=== PATIENT | male | born 1980 | race Caucasian/White ===

== ENCOUNTER → 2019-02-23 08:17 | Outpatient (CLI) | payer BC, SELFPAY ==
[2019-02-23 10:02] LABS: Alanine Aminotransferase 237 IU/L (<50); Albumin 5.3 g/dL (3.5-5.0); Albumin Globulin Ratio 1.5 (1.0-2.8); Alkaline Phosphatase 144 U/L (38-126); Aspartate Aminotransferase 470 IU/L (17-59); BUN Creatinine Ratio 14.5 (6-22); Bilirubin Total 3.3 mg/dL (0.2-1.3); Blood Urea Nitrogen 16 mg/dL (9-20); Carbon Dioxide 21 mmol/L (22-32); Chloride 95 mmol/L (98-107); Estimated Glomerular Filt Rate > 60.0 mL/min (>60); Globulin 3.5 g/dL (1.7-4.1); Glucose 102 mg/dL (70-100); HDL Cholesterol 105 mg/dL (40-60); HEMOLYSIS < 15 (0-50); Potassium 4.2 mmol/L (3.4-5.1); Sodium 132 mmol/L (137-145); Total Protein 8.8 g/dL (6.3-8.2)
[2019-02-23 10:13] LABS: Cholesterol 452 mg/dL (140-199); Triglycerides 1449 mg/dL (35-150)
== END ==
PROVIDERS: PCP Internal Medicine; Visit Provider Internal Medicine
DX: I10 Essential (primary) hypertension (principal)
CPT/HCPCS: 36415; 80053; 80061

== ENCOUNTER → 2019-03-12 16:17 | Outpatient (CLI) | payer BC, SELFPAY ==
--- NOTE | 2019-03-12 | DI.US.S_ITS ---
PROCEDURE: US ABDOMEN COMPLETE INDICATIONS: ABN RESULTS OFLIVER STUDIES/LAB TECHNIQUE: Real-time scanning was performed of the abdominal and retroperitoneal organs, with image documentation. COMPARISON: None. FINDINGS: Liver: Liver is normal in size and homogeneous in echotexture. Gallbladder: The gallbladder appears normal Biliary ducts: Intrahepatic bile ducts are non-dilated. Extrahepatic bile duct caliber measures 4.0 mm. Normal is 6-7 mm or less in diameter, or 10 mm or less post-cholecystectomy. Pancreas: Visualized portions of the pancreas are sonographically normal. Spleen: Spleen is normal in size and homogeneous in echotexture. Kidneys: Kidneys are normal in size and echotexture. Right kidney measures 10.6 cm long; left kidney measures 12.5 cm long. No hydronephrosis or nephrolithiasis. No solid masses. Aorta: Visualized aorta is normal in caliber at less than 3 cm. Iliacs: Proximal common iliac arteries are normal in caliber at less than 2.5 cm. IVC: Intrahepatic inferior vena cava is patent. Miscellaneous: No free abdominal fluid. IMPRESSION: Normal abdominal ultrasound, source of abnormal liver function tests is not seen. Dictated by: Oseas Aden M.D. on 03/13/2019 at 9:31 Approved by: Oseas Aden M.D. on 03/13/2019 at 9:33
[2019-03-12 18:08] LABS: Alanine Aminotransferase 42 IU/L (<50); Albumin 5.1 g/dL (3.5-5.0); Albumin Globulin Ratio 1.6 (1.0-2.8); Alkaline Phosphatase 90 U/L (38-126); Aspartate Aminotransferase 36 IU/L (17-59); Bilirubin Total 0.5 mg/dL (0.2-1.3); Bilirubin Unconjugated 0.4 mg/dL (0.0-1.1); Globulin 3.2 g/dL (1.7-4.1); HDL Cholesterol 77 mg/dL (40-60); Total Protein 8.3 g/dL (6.3-8.2); Triglycerides 465 mg/dL (35-150)
[2019-03-12 18:14] LABS: Cholesterol 353 mg/dL (140-199); HEMOLYSIS 23 (0-50)
== END ==
PROVIDERS: PCP Internal Medicine; Visit Provider Internal Medicine
DX: R94.5 Abnormal results of liver function studies (principal); E78.5 Hyperlipidemia, unspecified
CPT/HCPCS: 36415; 76700; 80061; 80076

== ENCOUNTER → 2019-10-08 17:46 | Outpatient (CLI) | payer BC, SELFPAY ==
--- NOTE | 2019-10-08 17:55 | DI.RAD.S_ITS ---
PROCEDURE: XR ANKLE RT MIN 3V INDICATIONS: RT ANKLE/ TIBIA PAIN TECHNIQUE: 3D views of the ankle were acquired. COMPARISON: [facility], , ANKLE 3 VIEWS RIGHT, 02/13/2013, 12:24. FINDINGS: Bones: No fractures or dislocations. Ankle mortise is normally aligned. Accessory ossicle adjacent to the tip of the lateral malleolus is stable. No suspicious bony lesions. Small plantar calcaneal bone spur. Soft tissues: No tibiotalar joint effusion. Achilles tendon appears normal. IMPRESSION: No fracture. No acute osseous lesion. If symptoms and/or clinical suspicion for pathology persists, further assessment with repeat radiographs (7-10 days) or advanced imaging (e.g. CT, MRI or bone scan) may be helpful. Dictated by: Mindy Bass MD, PhD on 10/09/2019 at 17:17 Approved by: Mindy Bass MD, PhD on 10/09/2019 at 17:18
== END ==
PROVIDERS: PCP Family Medicine; Referring Provider Family Medicine; Visit Provider Family Medicine
DX: M25.571 Pain in right ankle and joints of right foot (principal); M89.8X6 Other specified disorders of bone, lower leg
CPT/HCPCS: 73610

== ENCOUNTER → 2020-05-20 15:22 | Outpatient (CLI) | payer BC, SELFPAY ==
[2020-05-20] MEDS: COVID-19 VACC #1, MRNA(MOD) 100 MCG/0.5 ML VIAL IM (15:31)
== END ==
PROVIDERS: PCP Family Medicine; Visit Provider Internal Medicine
DX: Z23 Encounter for immunization (principal)
CPT/HCPCS: 0011A; 91301

== ENCOUNTER → 2020-06-18 15:38 | Outpatient (CLI) | payer BC, SELFPAY ==
[2020-06-18] MEDS: COVID-19 VACC #2, MRNA(MOD) 100 MCG/0.5 ML VIAL IM (15:47)
== END ==
PROVIDERS: PCP Family Medicine; Visit Provider Internal Medicine
DX: Z23 Encounter for immunization (principal)
CPT/HCPCS: 0012A; 91301

== ENCOUNTER → 2020-11-19 12:45 | Outpatient (CLI) | payer BC, SELFPAY ==
--- NOTE | 2020-11-19 | DI.RAD.S_ITS ---
PROCEDURE: XR KNEE RT 3V INDICATIONS: right knee pain, bursitis TECHNIQUE: 3 views of the knee were acquired. COMPARISON: None. FINDINGS: Bones: No fractures or dislocations. No suspicious bony lesions. Soft tissues: No joint effusion. No suspicious soft tissue calcifications. Soft tissue swelling along anterior aspect of patella and patella tendon is seen. IMPRESSION: No right knee fracture or dislocation. No significant joint effusion. Soft tissue swelling along anterior aspect of patella and patella tendon. Dictated by: Noah Lang M.D. on 11/19/2020 at 15:27 Approved by: Noah Lang M.D. on 11/19/2020 at 15:28
[2020-11-19 13:29] LABS: Add Manual Diff / Slide Review NO; Basophils Absolute Auto 0 /uL (0-100); Basophils Percent Auto 0.4 % (0-2); Eosinophils Absolute Auto 200 /uL (0-450); Eosinophils Percent Auto 2.7 % (2-4); Hematocrit 40.5 % (41-53); Hemoglobin 13.8 g/dL (13.5-17.5); Lymphocytes Absolute Auto 1500 /uL (1100-4500); Lymphocytes Percent Auto 23.3 % (25-40); Mean Corpuscular HGB Conc 34.1 % (30-36); Mean Corpuscular Hemoglobin 31.9 PG (26-34); Mean Corpuscular Volume 93.4 fL (80-100); Monocytes Absolute Auto 600 /uL (0-900); Monocytes Percent Auto 10.2 % (3-14); Neutrophils Absolute Auto 4000 /uL (1500-7000); Neutrophils Percent Auto 63.4 % (50-75); Platelet Count 256 X10^3/uL (150-400); Red Blood Cell Count 4.34 X10^6/uL (4.5-5.9); White Blood Cell Count 6.3 X10^3/uL (4.5-11.0)
[2020-11-19 13:47] LABS: Alanine Aminotransferase 39 IU/L (<50); Albumin 4.8 g/dL (3.5-5.0); Albumin Globulin Ratio 1.5 (1.0-2.8); Alkaline Phosphatase 96 U/L (38-126); Aspartate Aminotransferase 42 IU/L (17-59); BUN Creatinine Ratio 16.4 (6-22); Bilirubin Total 0.4 mg/dL (0.2-1.3); Blood Urea Nitrogen 11 mg/dL (9-20); C-Reactive Protein Quant 2.8 mg/dL (<1.0); Calcium 9.6 mg/dL (8.4-10.2); Carbon Dioxide 25 mmol/L (22-32); Chloride 104 mmol/L (98-107); Estimated Glomerular Filt Rate > 60.0 mL/min (>60); Globulin 3.2 g/dL (1.7-4.1); Glucose 92 mg/dL (70-100); HEMOLYSIS < 15 (0-50); Potassium 4.1 mmol/L (3.4-5.1); Sodium 138 mmol/L (137-145); Uric Acid 6.7 mg/dL (3.5-8.5)
[2020-11-19 13:48] LABS: Erythrocyte Sedimentation Rate 18 MM/HR (0-15)
[2020-11-19 13:49] LABS: Rheumatoid Factor < 8.6 IU/mL (<12.0)
[2020-11-19 14:21] LABS: TSH w/ Reflex to FT4 1.16 uIU/mL (0.47-4.68)
== END ==
PROVIDERS: PCP Family Medicine; Referring Provider Family Medicine; Visit Provider Family Medicine
DX: M25.561 Pain in right knee (principal); M70.51 Other bursitis of knee, right knee; M25.50 Pain in unspecified joint
CPT/HCPCS: 36415; 73562; 80053; 84443; 84550; 85025; 85651; 86140; 86430

== ENCOUNTER 2021-07-10 13:54 | Emergency (ER) | payer OTHER, SELFPAY ==
[2021-07-10 14:03] VITALS: BP 146/81; PULSE 88; RESP 14; TEMP 36.4; O2SAT 98; BMI 30.1
[2021-07-10] MEDS: LIDO 1%/SOD BICARB 8.4% (10ML) 10 ML SYRINGE INJ (15:46)
--- NOTE | 2021-07-10 15:51 | DI.RAD.S_ITS ---
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 COMPARISON: None. FINDINGS: Bones: No fractures or dislocations. No suspicious bony lesions. Soft tissues: No elbow joint effusion. No suspicious soft tissue calcifications. IMPRESSION: No visualized acute fracture or dislocation. However, if clinical concern and/or pain persist, short interval imaging followup in 7-10 days is recommended, as occult injury cannot be definitively excluded. Dictated by: Bridgette Najera M.D. on 07/10/2021 at 16:42 Approved by: Bridgette Najera M.D. on 07/10/2021 at 16:43
[2021-07-10] MEDS: KETOROLAC 30 MG/ML VIAL 15 MG IM (16:04)
[2021-07-10] MEDS: TET,DIPH,PERTUSS(ACELL),VAC/PF 0.5 ML SYRINGE IM (16:05)
[2021-07-10] MEDS: BACITRACIN OINT 0.9 GM PCKT 1 APPLIC TOP (16:52)
[2021-07-10] MEDS: DOXYCYCLINE HYCLATE 100 MG TABLET PO (16:52)
[2021-07-10 17:01] VITALS: BP 146/87; PULSE 76; RESP 16; O2SAT 96
--- NOTE | 2021-07-10 20:33 | ED_ITS ---
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 A compression dressing was applied right after this happened, and he came to the emergency department. Patient states that he does not remember when his last tetanus was. He denies any mobility deficit or sensation changes distal to this injury. Related Data Home Medications Medication Instructions Recorded Confirmed lisinopril 10 mg tablet 10 mg PO QDAY #0 11/03/16 06/24/21 omeprazole magnesium 20 mg 20 mg PO #0 11/03/16 06/24/21 tablet,delayed release (Prilosec OTC) albuterol sulfate 90 mcg/actuation 1 inhalation INHALATION Q4-6H PRN 12/20/19 06/24/21 breath activated powder inhaler loratadine 10 mg tablet (Allergy 10 mg PO DAILY 12/20/19 06/24/21 Relief (loratadine)) Previous Rx's Medication Instructions Recorded naproxen 500 mg tablet (Naprosyn) 500 mg PO BID #30 tab 11/03/16 zolpidem 10 mg tablet 10 mg PO BEDTIME PRN #10 tab 12/20/19 fluoxetine 20 mg capsule 20 mg PO DAILY #90 cap 03/31/21 doxycycline hyclate 100 mg capsule 100 mg PO BID 4 Days #8 cap 07/10/21 mupirocin 2 % topical ointment 1 applic TOPICAL BID 6 Days #15 g 07/10/21 Allergies Allergy/AdvReac Type Severity Reaction Status Date / Time cat dander Allergy Mild Verified 07/10/21 14:03 dog dander Allergy Verified 07/10/21 14:03 seasonal Allergy Mild runny Uncoded 06/24/21 16:07 nose, itchy eyes Review of Systems <MARLEY Maxwell - Last Filed: 07/10/21 20:51> Review of Systems Narrative: General: denies fever, chills Head/Neck: denies headache, neck pain Eyes: denies visual changes, eye pain Cardio: denies chest pain, palpitations Respiratory: denies shortness of breath, cough GI: denies abdominal pain, nausea, vomiting, or diarrhea : denies dysuria, hematuria MSK: denies joint pain, muscle, c/o laceration with pain to his left upper arm below his bicep Neuro: denies numbness, tingling Patient History <MARLEY Maxwell - Last Filed: 07/10/21 20:51> Social History Smoking Status: Former smoker Smoking Status: Former smoker alcohol intake frequency: holidays/special occasions only Substance Use Type: does not use Exam <MARLEY Maxwell - Last Filed: 07/10/21 20:51> Narrative Exam Narrative: Independently reviewed vitals signs and nursing notes. General: Awake, alert, nontoxic, no cardiorespiratory distress Head/Neck: Atraumatic, neck full range of motion Eyes: EOMI, conjunctiva normal Nose: nares patent, no rhinorrhea Mouth/Throat: moist mucus membranes, posterior pharynx normal, no oral lesions Cardio: Regular rate and rhythm, no peripheral edema Respiratory: respirations unlabored without wheezing, stridor, or rales. No retractions. GI: Abdomen soft, nontender MSK: Moves all extremities, neurovascularly intact Skin: Normal capillary refill, no rash, 3 cm laceration to his elbow crease, below his biceps. It is irregular, linear, edges of wound are burned, with debris. X-ray is pending for foreign body Neuro: Normal speech and cognition, normal gait Initial Vital Signs Initial Vital Signs: Vital Signs Temperature 97.6 F 07/10/21 14:03 Pulse Rate 88 07/10/21 14:03 Respiratory Rate 14 07/10/21 14:03 Blood Pressure 146/81 H 07/10/21 14:03 Pulse Oximetry 98 07/10/21 14:03 <Nima Herrmann DO - Last Filed: 07/11/21 07:04> Initial Vital Signs Initial Vital Signs: Vital Signs Temperature 97.6 F 07/10/21 14:03 Pulse Rate 88 07/10/21 14:03 Respiratory Rate 14 07/10/21 14:03 Blood Pressure 146/81 H 07/10/21 14:03 Pulse Oximetry 98 07/10/21 14:03 Procedures <MARLEY Maxwell - Last Filed: 07/10/21 20:51> Laceration Repair Laceration 1: Side (If applicable): left Size (cm): 3 Description: linear, irregular and contaminated Depth: simple, single layer Local Anesthetic: lidocaine 1% and with bicarb Amount of anesthesia used (mL): 8 Pre-repair: wound explored, irrigated extensively and deep structures intact Skin layer closed with: nylon Skin layer suture size: 5-0 Number of sutures: 9 Technique: simple, interrupted Subcutaneous layer closed with: chromic gut Subcutaneous layer suture size: 4-0 Number of sutures: 2 Technique: simple, interrupted Course <MARLEY Maxwell - Last Filed: 07/10/21 20:51> Orders Ordered: Discontinued Medications Bacitracin (Bacitracin Oint 0.9 Gm Pckt) 1 applic TOP NOW ONE Stop: 07/10/21 16:44 Last Admin: 07/10/21 16:52 Dose: 1 applic Documented by: PERCY Diphtheria/Tetanus/Acell Pertussis (Tet,Diph,Pertuss(Acell),Vac/Pf 0.5 Ml Syringe) 0.5 ml IM .ONCE ONE Stop: 07/10/21 15:52 Last Admin: 07/10/21 16:05 Dose: 0.5 ml Documented by: PERCY Doxycycline Hyclate (Doxycycline Hyclate 100 Mg Tablet) 100 mg PO NOW ONE Stop: 07/10/21 16:44 Last Admin: 07/10/21 16:52 Dose: 100 mg Documented by: PERCY Ketorolac Tromethamine (Ketorolac 30 Mg/Ml Vial) 15 mg IM NOW ONE Stop: 07/10/21 15:52 Last Admin: 07/10/21 16:04 Dose: 15 mg Documented by: PERCY Lidocaine/Sodium Bicarbonate (Lido 1%/Sod Bicarb 8.4% (10ml) 10 Ml Syringe) 10 ml INJ NOW ONE Stop: 07/10/21 15:41 Last Admin: 07/10/21 15:46 Dose: 10 ml Documented by: ROULA Vital Signs Vital signs: Vital Signs - 8 hr 07/10/21 14:03 07/10/21 17:01 Temperature 97.6 F Pulse Rate 88 76 Respiratory Rate 14 16 Blood Pressure 146/81 H 146/87 H Pulse Oximetry 98 96 <Nima Herrmann DO - Last Filed: 07/11/21 07:04> Orders Ordered: Discontinued Medications Bacitracin (Bacitracin Oint 0.9 Gm Pckt) 1 applic TOP NOW ONE Stop: 07/10/21 16:44 Last Admin: 07/10/21 16:52 Dose: 1 applic Documented by: PERCY Diphtheria/Tetanus/Acell Pertussis (Tet,Diph,Pertuss(Acell),Vac/Pf 0.5 Ml Syrin ge) 0.5 ml IM .ONCE ONE Stop: 07/10/21 15:52 Last Admin: 07/10/21 16:05 Dose: 0.5 ml Documented by: PERCY Doxycycline Hyclate (Doxycycline Hyclate 100 Mg Tablet) 100 mg PO NOW ONE Stop: 07/10/21 16:44 Last Admin: 07/10/21 16:52 Dose: 100 mg Documented by: PERCY Ketorolac Tromethamine (Ketorolac 30 Mg/Ml Vial) 15 mg IM NOW ONE Stop: 07/10/21 15:52 Last Admin: 07/10/21 16:04 Dose: 15 mg Documented by: PERCY Lidocaine/Sodium Bicarbonate (Lido 1%/Sod Bicarb 8.4% (10ml) 10 Ml Syringe) 10 ml INJ NOW ONE Stop: 07/10/21 15:41 Last Admin: 07/10/21 15:46 Dose: 10 ml Documented by: ROULA Vital Signs Vital signs: Vital Signs - 8 hr 07/10/21 14:03 07/10/21 17:01 Temperature 97.6 F Pulse Rate 88 76 Respiratory Rate 14 16 Blood Pressure 146/81 H 146/87 H Pulse Oximetry 98 96 MDM - Wound/Laceration <MARLEY Maxwell - Last Filed: 07/10/21 20:51> Imaging Data Extremity x-ray #1: Radiologist's Impression: PROCEDURE:? XR ELBOW LT 2V ? INDICATIONS:? 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 TECHNIQUE:? 2 views of the elbow were acquired.? ? COMPARISON:? None. ? FINDINGS:? ? Bones:? No fractures or dislocations.? No suspicious bony lesions.? ? Soft tissues:? No elbow joint effusion.? No suspicious soft tissue calcifications.? ? ? IMPRESSION:? No visualized acute fracture or dislocation. However, if clinical concern and/or pain persist, short interval imaging followup in 7-10 days is recommended, as occult injury cannot be definitively excluded. ? ? Dictated by: Bridgette Najera M.D. on 07/10/2021 at 16:42 ? ? Approved by: Bridgette Najera M.D. on 07/10/2021 at 16:43 ? MDM Narrative Medical decision making narrative: This is a 40-year-old male presents to the emergency department with a left arm laceration he sustained while grinding metal at work just prior to arrival. He does not remember when his last tetanus was. X-ray does not show any foreign body, no range of motion deficit or sensation deficit. Patient has a 3 cm contaminated wound with metal and debris, this was thoroughly irrigated by myself, skin edges appear burned, your debris, tissue was removed with gentle cleaning. Subcutaneous tissue was repaired with 2 4.0 chromic gut sutures and dermal layer required 9 sutures. Wound edges are well approximated, tetanus was updated, patient was given doxycycline for wound prophylaxis as he has a history of staph infection in the past. Patient was prescribed mupirocin ointment and 5 days of doxycycline b.i.d.. Patient is appropriate and amenable to discharge home. Vital signs are stable on repeat examination is unremarkable. Patient has been informed of results. Patient has been given strict return to ER precautions for any new or worsening symptoms. Patient understands to follow up closely with outpatient providers as instructed. Patient understands plan and agrees to discharge home. All questions and concerns answered at this time. [id number] Discharge Plan Departure Patient Disposition: Home Clinical Impression: Work related injury Laceration of arm, left, complicated Qualifiers: Encounter type: initial encounter Qualified Code(s): S41.112A - Laceration without foreign body of left upper arm, initial encounter Instructions: DI for Laceration Repair Activity Restrictions/Additional Instructions: *You have been diagnosed with a work related injury, and laceration of your left upper arm requiring 9 external sutures, and 2 internal dissolvable sutures. Please have the sutures removed in 7 days, you can go to your primary care provider, the walk-in clinic or return to the emergency department. Please start taking the doxycycline for the next 4 days for infection prophylaxis since you have a history of skin infection. Thank you for trusting us with your care, I hope this heals without an incident, I sent topical antibiotic ointment to the pharmacy as well as the oral antibiotic. Please keep it covered with a Band-Aid especially while your working, your tetanus was updated today, you do not need another 1 for 10 years. I hope you feel better soon. [id number]. Please reference this if you have a visit for your suture removal. *What to do: *Please continue to take your regular medications as directed. [ ] New medication prescriptions sent to your pharmacy: [ ] [ ] New medication written as a paper prescription [ ] No new medications given *Please follow up with your primary care provider in 2-3 days, call for an appointment. Let them know you were seen in the Emergency Department and that we asked that you be seen for follow-up. We will electronically transmit a record of today's note if your PCP is in our system *If you do not have a primary care provider please contact [phone] to establish care with one of [facility] primary care providers. *Return to Emergency Department if you should have any new, worsening or concerning symptoms, such as [fever greater than 101F, chills, worsening pain, persistent vomiting or other bothersome symptoms] Prescriptions: New doxycycline hyclate 100 mg capsule 100 mg PO BID 4 Days Qty: 8 0RF mupirocin 2 % ointment 1 applic topical BID 6 Days Qty: 15 0RF No Action loratadine [Allergy Relief (loratadine)] 10 mg tablet 10 mg PO DAILY 0RF albuterol sulfate 90 mcg/actuation aerosol powdr breath activated 1 inhalation INHALATION Q4-6H PRN0RF zolpidem 10 mg tablet 10 mg PO BEDTIME PRN (Reason: insomnia) Qty: 10 0RF fluoxetine 20 mg capsule 20 mg PO DAILY Qty: 90 3RF lisinopril 10 MG tablet 10 mg PO QDAY Qty: 0 0RF omeprazole magnesium [Prilosec OTC] 20 MG tablet,delayed release (DR/EC) 20 mg PO Qty: 0 0RF naproxen [Naprosyn] 500 MG tablet 500 mg PO BID Qty: 30 1RF Referrals: Lucien Cline MD [Primary Care Provider] - <Nima Herrmann, - Last Filed: 07/11/21 07:04> Cosign ED Attending Cosignature Attestation: Dr Herrmann Co-Sign Statement: I was available for consultation during this patient's emergency department visit. This chart is signed by myself for administrative purposes only. I did not have direct contact with this patient during this visit. They were seen independently by the APC.
== END 2021-07-10 17:04 | disposition home or self-care (01) ==
PROVIDERS: Emergency Provider Nurse Practitioner Critical Care Medicine; PCP Family Medicine
DX: S41.112A Laceration without foreign body of left upper arm, initial encounter (principal); W27.8XXA Contact with other nonpowered hand tool, initial encounter; Y99.0 Civilian activity done for income or pay; Z23 Encounter for immunization
CPT/HCPCS: 12002; 73070; 90471; 96372; 99283; 99284; 90715; J1885

== ENCOUNTER → 2021-08-24 14:51 | Outpatient (CLI) | payer BC, SELFPAY ==
--- NOTE | 2021-08-24 | DI.RAD.S_ITS ---
PROCEDURE: XR CHEST 2V INDICATIONS: PAIN IN RIBS TECHNIQUE: 2 views of the chest were acquired. COMPARISON: [facility], CHEST 2 VIEW, 07/29/2010, 11:39. [facility], CHEST 2 VIEW, 06/10/2008, 14:34. FINDINGS: Surgical changes and devices: None. Lungs and pleura: Lung volumes are low. There are minimal hazy mid and lower lung opacities. Mediastinum: Mediastinal contours are unremarkable. Heart size is normal. Bones and chest wall: No suspicious bony abnormalities. Soft tissues appear unremarkable. IMPRESSION: 1. Low lung volumes with minimal bilateral pulmonary opacities which likely represent atelectasis, etiologies such as aspiration or pneumonia difficult to fully exclude. 2. No definite acute displaced rib fracture identified. If clinically indicated, a CT of the chest or dedicated rib radiographs could be obtained for further evaluation. No pneumothorax. Dictated by: Serge John M.D. on 08/24/2021 at 16:34 Approved by: Serge John M.D. on 08/24/2021 at 16:36
== END ==
PROVIDERS: PCP Family Medicine; Referring Provider Family Medicine; Visit Provider Family Medicine
DX: R07.81 Pleurodynia
CPT/HCPCS: 71046

== ENCOUNTER 2022-03-05 15:02 | Emergency (ER) | payer OTHER, SELFPAY ==
[2022-03-05 15:36] VITALS: BP 140/90; PULSE 67; RESP 18; TEMP 36.2; O2SAT 99; BMI 27.2
--- NOTE | 2022-03-05 15:45 | DI.RAD.S_ITS ---
PROCEDURE: XR CHEST 1V INDICATIONS: fall, landed on excavator bucket TECHNIQUE: One view of the chest was acquired. COMPARISON: [facility], CR, XR CHEST 2V, 08/24/2021, 14:44. [facility], CR, CHEST 2 VIEW, 07/29/2010, 11:39. [facility], CT, CT CHEST ABD PEL W CON, 03/05/2022, 16:18. FINDINGS: Surgical changes and devices: None. Lungs and pleura: Lungs are clear. No pleural effusions or pneumothorax. Mediastinum: Mediastinal contours appear normal. Heart size is normal. Bones and chest wall: No suspicious bony lesions. Overlying soft tissues appear unremarkable. IMPRESSION: No acute radiographic abnormality. Dictated by: Tito Cuadra M.D. on 03/05/2022 at 17:06 Approved by: Tito Cuadra M.D. on 03/05/2022 at 17:07
--- NOTE | 2022-03-05 15:47 | DI.CT.S_ITS ---
PROCEDURE: CT CERVICAL SPINE WO CON INDICATIONS: trauma TECHNIQUE: Noncontrast 3 mm thick sections acquired from the skull base to the T4 level. Sagittal and coronal reformats were then constructed. For radiation dose reduction, the following was used: automated exposure control, adjustment of mA and/or kV according to patient size. COMPARISON: None. FINDINGS: Image quality: Excellent. Bones: No fractures or dislocations. Visualized superior ribs are intact. Soft tissues: Prevertebral soft tissues are normal in thickness. No paravertebral hematomas. No apical pneumothoraces. IMPRESSION: No visualized fracture. Dictated by: Bridgette Najera M.D. on 03/05/2022 at 16:44 Approved by: Bridgette Najera M.D. on 03/05/2022 at 16:45
--- NOTE | 2022-03-05 15:47 | DI.CT.S_ITS ---
PROCEDURE: CT CHEST ABD PEL W CON INDICATIONS: trauma TECHNIQUE: After the administration of intravenous contrast, 5 mm thick sections acquired from the lung apices to the symphysis. 2.5 mm thick coronal and sagittal reformats were acquired. Additional 7 mm thick coronal maximum intensity projection (MIP) reformats acquired through the lungs. Optional 10-minute delayed imaging may be performed from the kidneys to the bladder. For radiation dose reduction, the following was used: automated exposure control, adjustment of mA and/or kV according to patient size. COMPARISON: None. FINDINGS: Image quality: Excellent. CHEST: Lungs: No pulmonary contusions or lacerations. No acute airspace opacities. No pneumothorax or hemothorax. Central and peripheral airways appear patent and normal in caliber. Mediastinum: No mediastinal hematomas. Heart size is normal. No pericardial effusion. Thoracic aorta and pulmonary arteries demonstrate normal size and enhancement. No mediastinal or hilar adenopathy. Esophagus is normal in caliber. No hiatal hernia. Chest wall: Chronic appearing left lateral 7th rib fracture is present. No subcutaneous emphysema. No axillary or supraclavicular adenopathy. Thyroid gland demonstrates low-attenuation focus within the left lobe. No priors are available for comparison. ABDOMEN: Solid organs: Liver is normal in size and enhancement, without lacerations. Gallbladder is unremarkable. Biliary system is non-dilated. Pancreas enhances normally, without transection. Spleen is normal in size and enhancement, without lacerations. No adrenal hematomas. Both kidneys enhance normally, without hydronephrosis or lacerations. Peritoneum and bowel: No free fluid or air. Unenhanced bowel loops demonstrate normal wall thickness and caliber. Nodes and vessels: No retroperitoneal or mesenteric adenopathy. Aorta and inferior vena cava are normal in size and enhancement. Miscellaneous: No ventral hernias. PELVIS: Genitourinary: Bladder wall thickness is normal. Miscellaneous: No inguinal hernias or adenopathy. Bones: Pelvic ring and hip joints appear intact. No vertebral compression fractures. IMPRESSION: No visualized acute osseous or traumatic injury. Dictated by: Bridgette Najera M.D. on 03/05/2022 at 16:45 Approved by: Bridgette Najera M.D. on 03/05/2022 at 16:48
--- NOTE | 2022-03-05 15:47 | DI.CT.S_ITS ---
PROCEDURE: CT HEAD/BRAIN WO CON INDICATIONS: trauma TECHNIQUE: Noncontrast 4.5 mm thick angled axial sections acquired from the foramen magnum to the vertex, with coronal and sagittal reformats. For radiation dose reduction, the following was used: automated exposure control, adjustment of mA and/or kV according to patient size. COMPARISON: [facility], CT, HEAD WITHOUT CONTRAST, 09/21/2007, 14:19. FINDINGS: Image quality: Excellent. CSF spaces: Basal cisterns are patent. No extra-axial fluid collections. Ventricles are normal in size and shape. Brain: No midline shift. No intracranial masses or hemorrhage. Centeno-white matter interface is normal. Skull and face: Calvarium and visualized facial bones are intact, without suspicious lesions. Sinuses: Visualized sinuses and mastoids are clear. IMPRESSION: 1. No acute intracranial process. Dictated by: Bridgette Najera M.D. on 03/05/2022 at 16:42 Approved by: Bridgette Najera M.D. on 03/05/2022 at 16:42
[2022-03-05] MEDS: HYDROMORPHONE 1 MG INJ IV ×2 (16:06→20:42)
[2022-03-05] MEDS: ONDANSETRON 4 MG/2 ML INJ IV (16:06)
[2022-03-05 16:10] VITALS: BP 116/68; PULSE 74; RESP 18; O2SAT 98
--- NOTE | 2022-03-05 16:16 | ED.TRAUMA ---
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 He was standing about 8-10 feet with his back to open space pulling on something he was wearing a helmet something broke he landed on the side edge of an excavator bucket. He hit the left side of his back. No loss of consciousness no nausea or vomiting. He is quite a bit of pain in his back and shoulder unable to get comfortable. Having pain with deep breathing. He was initially seen at the walk-in clinic but sent here for further evaluation after trauma. Related Data Home Medications Medication Instructions Recorded Confirmed lisinopril 10 mg tablet 10 mg PO QDAY ##0 11/03/16 06/24/21 omeprazole magnesium 20 mg 20 mg PO ##0 11/03/16 06/24/21 tablet,delayed release (Prilosec OTC) albuterol sulfate 90 mcg/actuation 1 inhalation inhalation Q4-6H PRN 12/20/19 06/24/21 breath activated powder inhaler loratadine 10 mg tablet (Allergy 10 mg PO DAILY 12/20/19 06/24/21 Relief (loratadine)) Previous Rx's Medication Instructions Recorded naproxen 500 mg tablet (Naprosyn) 500 mg PO BID #30 tabs 11/03/16 fluoxetine 20 mg capsule 20 mg PO DAILY #90 caps 03/31/21 hydrocodone 5 mg-acetaminophen 325 1 tab PO Q6H PRN pain #10 tabs 03/05/22 mg tablet Allergies Allergy/AdvReac Type Severity Reaction Status Date / Time cat dander Allergy Mild Verified 03/05/22 15:41 dog dander Allergy Verified 03/05/22 15:41 seasonal Allergy Mild runny Uncoded 06/24/21 16:07 nose, itchy eyes Patient History Social History Smoking Status: Former smoker Smoking Status: Former smoker alcohol intake frequency: holidays/special occasions only Substance Use Type: does not use Exam Initial Vital Signs Initial Vital Signs: Vital Signs Temperature 97.1 F L 03/05/22 15:36 Pulse Rate 67 03/05/22 15:36 Respiratory Rate 18 03/05/22 15:36 Blood Pressure 140/90 03/05/22 15:36 Pulse Oximetry 99 03/05/22 15:36 Oxygen Delivery Method 03/05/22 15:36 GENERAL: Alert 41-year-old male HEENT: Head normocephalic,, EOMI, pupils reactive, face symmetric, moist mucous membranes, no hemotympanum, no septal hematoma NECK: Supple, full range of motion, no step-offs, nontender on vertebrae CARDIOVASCULAR: Regular rate and rhythm without murmurs, rubs or gallops. Contusion noted left posterior ribs about 5 through 11 no paradoxical movement RESPIRATORY: Breath sounds equal bilaterally, no wheezes rales or rhonchi. No crepitations, no subcutaneous air, chest is nontender, no signs of trauma ABDOMEN: Soft, nontender. Normoactive bowel sounds all 4 quadrants. No guarding or rebound. BACK: Nontender vertebrae, no step-offs, no contusions PELVIS: stable. EXTREMITIES: Normal range of motion, no clubbing or edema. Right upper extremity: Within normal limits Left upper extremity: Within normal limits Right lower extremity: Within normal limits Left lower extremity:Within normal limits NEUROLOGICAL: Cranial nerves II through XII grossly intact. Normal gait and speech. SKIN: Contusion left posterior rib Course Orders Ordered: Discontinued Medications Hydrocodone Bitart/Acetaminophen (Hydrocodone/Acet 5/325 Prepack) 1 bottle MISC SEEINSTR ONE Stop: 03/05/22 20:31 Last Admin: 03/05/22 20:43 Dose: 1 bottle Documented By: SIMEON Hydromorphone HCl (Hydromorphone 1 Mg Inj) 1 mg IV NOW ONE Stop: 03/05/22 15:46 Last Admin: 03/05/22 16:06 Dose: 1 mg Documented By: SABIHA Hydromorphone HCl (Hydromorphone 0.5 Mg Inj) 0.5 mg IV NOW ONE Stop: 03/05/22 17:06 Last Admin: 03/05/22 17:56 Dose: 0.5 mg Documented By: SABIHA Hydromorphone HCl (Hydromorphone 1 Mg Inj) 1 mg IV NOW ONE Stop: 03/05/22 20:39 Last Admin: 03/05/22 20:42 Dose: 1 mg Documented By: SIMEON Sodium Chloride (Normal Saline 0.9%) 1,000 mls @ 1,000 mls/hr IV BOLUS ONE Stop: 03/05/22 18:04 Last Infusion: 03/05/22 18:30 Dose: 0 mls/hr Documented By: Admin: 03/05/22 17:50 Dose: 1,000 mls/hr Documented By: SABIHA Sodium Chloride (Normal Saline 0.9%) 1,000 mls @ 1,000 mls/hr IV BOLUS ONE Stop: 03/05/22 19:45 Last Infusion: 03/05/22 20:47 Dose: 0 mls/hr Documented By: Admin: 03/05/22 18:47 Dose: 1,000 mls/hr Documented By: SABIHA Ketorolac Tromethamine (Ketorolac 30 Mg/Ml Vial) 15 mg IV NOW ONE Stop: 03/05/22 17:06 Last Admin: 03/05/22 17:50 Dose: 15 mg Documented By: SABIHA Ondansetron HCl (Ondansetron 4 Mg/2 Ml Inj) 4 mg IV NOW ONE Stop: 03/05/22 15:46 Last Admin: 03/05/22 16:06 Dose: 4 mg Documented By: SABIHA Vital Signs Vital signs: Vital Signs - 8 hr 03/05/22 15:36 03/05/22 16:10 03/05/22 17:51 Temperature 97.1 F L Pulse Rate 67 74 66 Respiratory Rate 18 18 16 Blood Pressure 140/90 116/68 141/78 H Pulse Oximetry 99 98 99 Oxygen Delivery Method Room Air Room Air Room Air 03/05/22 19:52 Temperature Pulse Rate 78 Respiratory Rate 17 Blood Pressure 140/70 Pulse Oximetry 99 Oxygen Delivery Method Room Air MDM - Trauma Lab Data Result diagrams: 03/05/22 16:00 03/05/22 16:00 Labs: Lab Results 03/05/22 03/05/22 03/05/22 Range/Units 16:00 16:00 16:00 WBC 12.8 H (4.5-11.0) X10^3/uL RBC 4.61 (4.5-5.9) X10^6/uL Hgb 13.6 (13.5-17.5) g/dL Hct 41.0 (41-53) % MCV 89.0 (80-100) fL MCH 29.6 (26-34) PG MCHC 33.3 (30-36) % RDW 13.6 (11.6-14.8) % Plt Count 261 (150-400) X10^3/uL Neut % (Auto) 76.7 H (50-75) % Lymph % (Auto) 14.7 L (25-40) % Rankin % (Auto) 6.9 (3-14) % Eos % (Auto) 1.5 L (2-4) % Baso % (Auto) 0.2 (0-2) % Neut # (Auto) 9800 H (4602-8481) /uL Lymph # (Auto) 1900 (8929-7556) /uL Rankin # (Auto) 900 (0-900) /uL Eos # (Auto) 200 (0-450) /uL Baso # (Auto) 0 (0-100) /uL PT 11.8 (10.1-12.7) SECONDS INR 1.0 (0.9-1.3) APTT 28 (26-36) SECONDS Sodium 135 L (137-145) mmol/L Potassium 3.8 (3.4-5.1) mmol/L Chloride 102 (98-107) mmol/L Carbon Dioxide 24 (22-32) mmol/L BUN 17 (9-20) mg/dL Creatinine 0.76 (0.66-1.25) mg/dL Estimated GFR > 60 (>60) mL/min BUN/Creatinine Ratio 22.4 H (6-22) Glucose 77 (70-100) mg/dL Lactate (0.7-2.1) mmol/L Calcium 9.3 (8.4-10.2) mg/dL Total Bilirubin 0.6 (0.2-1.3) mg/dL AST 59 (17-59) IU/L ALT 47 (<50) IU/L Alkaline Phosphatase 79 (38-126) U/L Total Creatine Kinase 1156 H (55-170) U/L CK-MB (CK-2) 11.60 H (<2.37) ng/mL CK-MB (CK-2) Rel Index 1.0 L (1.5-5.0) % Troponin I < 0.012 (0.01-0.034) ng/mL Total Protein 7.7 (6.3-8.2) g/dL Albumin 4.6 (3.5-5.0) g/dL Globulin 3.1 (1.7-4.1) g/dL Albumin/Globulin Ratio 1.5 (1.0-2.8) Lipase 55 (23-300) U/L Urine Color Urine Appearance Urine pH (4.5-8.0) Ur Specific [place] (1.000-1.035) Urine Protein (Negative) Urine Glucose (UA) (Negative) g/dL Urine Ketones (NEGATIVE) Urine Occult Blood (Negative) Urine Nitrate (Negative) Urine Bilirubin (NEGATIVE) Urine Urobilinogen (0.2) E.U./dL Ur Leukocyte Esterase (NEGATIVE) Urine RBC (0-5/HPF) Urine WBC (0-5/HPF) Urine Bacteria (None) Ur Culture Indicated? U Opiates 300ng/mL cut (Negative) Ur Oxycodone Screen (Negative) Urine Methadone Screen (Negative) Ur Barbiturates Screen (Negative) U Tricyclic Antidepress (Negative) Ur Phencyclidine Scrn (Negative) Ur Amphetamines Screen (Negative) U Methamphetamines Scrn (Negative) Ur MDMA Scrn (Ecstasy) (Negative) U Benzodiazepines Scrn (Negative) Urine Cocaine Screen (Negative) U Marijuana (THC) Screen (Negative) Ethyl Alcohol < 10 ( - 10) mg/dL 03/05/22 03/05/22 03/05/22 Range/Units 16:00 17:41 17:41 WBC (4.5-11.0) X10^3/uL RBC (4.5-5.9) X10^6/uL Hgb (13.5-17.5) g/dL Hct (41-53) % MCV (80-100) fL MCH (26-34) PG MCHC (30-36) % RDW (11.6-14.8) % Plt Count (150-400) X10^3/uL Neut % (Auto) (50-75) % Lymph % (Auto) (25-40) % Rankin % (Auto) (3-14) % Eos % (Auto) (2-4) % Baso % (Auto) (0-2) % Neut # (Auto) (1737-9736) /uL Lymph # (Auto) (8175-0571) /uL Rankin # (Auto) (0-900) /uL Eos # (Auto) (0-450) /uL Baso # (Auto) (0-100) /uL PT (10.1-12.7) SECONDS INR (0.9-1.3) APTT (26-36) SECONDS Sodium (137-145) mmol/L Potassium (3.4-5.1) mmol/L Chloride (98-107) mmol/L Carbon Dioxide (22-32) mmol/L BUN (9-20) mg/dL Creatinine (0.66-1.25) mg/dL Estimated GFR (>60) mL/min BUN/Creatinine Ratio (6-22) Glucose (70-100) mg/dL Lactate 0.6 L (0.7-2.1) mmol/L Calcium (8.4-10.2) mg/dL Total Bilirubin (0.2-1.3) mg/dL AST (17-59) IU/L ALT (<50) IU/L Alkaline Phosphatase (38-126) U/L Total Creatine Kinase (55-170) U/L CK-MB (CK-2) (<2.37) ng/mL CK-MB (CK-2) Rel Index (1.5-5.0) % Troponin I (0.01-0.034) ng/mL Total Protein (6.3-8.2) g/dL Albumin (3.5-5.0) g/dL Globulin (1.7-4.1) g/dL Albumin/Globulin Ratio (1.0-2.8) Lipase (23-300) U/L Urine Color Yellow Urine Appearance Clear Urine pH 5.5 (4.5-8.0) Ur Specific [place] <=1.005 (1.000-1.035) Urine Protein Negative (Negative) Urine Glucose (UA) Negative (Negative) g/dL Urine Ketones Negative (NEGATIVE) Urine Occult Blood Negative (Negative) Urine Nitrate Negative (Negative) Urine Bilirubin Negative (NEGATIVE) Urine Urobilinogen 0.2 (0.2) E.U./dL Ur Leukocyte Esterase Negative (NEGATIVE) Urine RBC None seen (0-5/HPF) Urine WBC None seen (0-5/HPF) Urine Bacteria None seen (None) Ur Culture Indicated? Cult not indicated U Opiates 300ng/mL cut Negative (Negative) Ur Oxycodone Screen Positive H (Negative) Urine Methadone Screen Negative (Negative) Ur Barbiturates Screen Negative (Negative) U Tricyclic Antidepress Negative (Negative) Ur Phencyclidine Scrn Negative (Negative) Ur Amphetamines Screen Negative (Negative) U Methamphetamines Scrn Negative (Negative) Ur MDMA Scrn (Ecstasy) Negative (Negative) U Benzodiazepines Scrn Negative (Negative) Urine Cocaine Screen Negative (Negative) U Marijuana (THC) Screen Positive H (Negative) Ethyl Alcohol ( - 10) mg/dL 03/05/22 Range/Units 19:45 WBC (4.5-11.0) X10^3/uL RBC (4.5-5.9) X10^6/uL Hgb (13.5-17.5) g/dL Hct (41-53) % MCV (80-100) fL MCH (26-34) PG MCHC (30-36) % RDW (11.6-14.8) % Plt Count (150-400) X10^3/uL Neut % (Auto) (50-75) % Lymph % (Auto) (25-40) % Rankin % (Auto) (3-14) % Eos % (Auto) (2-4) % Baso % (Auto) (0-2) % Neut # (Auto) (2829-4702) /uL Lymph # (Auto) (1953-0735) /uL Rankin # (Auto) (0-900) /uL Eos # (Auto) (0-450) /uL Baso # (Auto) (0-100) /uL PT (10.1-12.7) SECONDS INR (0.9-1.3) APTT (26-36) SECONDS Sodium (137-145) mmol/L Potassium (3.4-5.1) mmol/L Chloride (98-107) mmol/L Carbon Dioxide (22-32) mmol/L BUN (9-20) mg/dL Creatinine (0.66-1.25) mg/dL Estimated GFR (>60) mL/min BUN/Creatinine Ratio (6-22) Glucose (70-100) mg/dL Lactate (0.7-2.1) mmol/L Calcium (8.4-10.2) mg/dL Total Bilirubin (0.2-1.3) mg/dL AST (17-59) IU/L ALT (<50) IU/L Alkaline Phosphatase (38-126) U/L Total Creatine Kinase 1112 H (55-170) U/L CK-MB (CK-2) (<2.37) ng/mL CK-MB (CK-2) Rel Index (1.5-5.0) % Troponin I (0.01-0.034) ng/mL Total Protein (6.3-8.2) g/dL Albumin (3.5-5.0) g/dL Globulin (1.7-4.1) g/dL Albumin/Globulin Ratio (1.0-2.8) Lipase (23-300) U/L Urine Color Urine Appearance Urine pH (4.5-8.0) Ur Specific [place] (1.000-1.035) Urine Protein (Negative) Urine Glucose (UA) (Negative) g/dL Urine Ketones (NEGATIVE) Urine Occult Blood (Negative) Urine Nitrate (Negative) Urine Bilirubin (NEGATIVE) Urine Urobilinogen (0.2) E.U./dL Ur Leukocyte Esterase (NEGATIVE) Urine RBC (0-5/HPF) Urine WBC (0-5/HPF) Urine Bacteria (None) Ur Culture Indicated? U Opiates 300ng/mL cut (Negative) Ur Oxycodone Screen (Negative) Urine Methadone Screen (Negative) Ur Barbiturates Screen (Negative) U Tricyclic Antidepress (Negative) Ur Phencyclidine Scrn (Negative) Ur Amphetamines Screen (Negative) U Methamphetamines Scrn (Negative) Ur MDMA Scrn (Ecstasy) (Negative) U Benzodiazepines Scrn (Negative) Urine Cocaine Screen (Negative) U Marijuana (THC) Screen (Negative) Ethyl Alcohol ( - 10) mg/dL MDM Narrative Medical decision making narrative: Patient presents as a trauma he had significant fall with injury left posterior ribs. Scans are negative. Please see [facility] for all hands. CPK was noted to be mildly elevated 1156 after couple L of fluid he got 1112. That significant rhabdo he has no sign of renal failure. Pain is controlled here with Toradol and Dilaudid. He is feeling better. I do not feel like there significant change with his CPK. He is able to drink fluids I see no need for admitting. Recommend that he drink fluids at home. Discharge Plan Departure Patient Disposition: Home Clinical Impression: Fall, Elevated CPK Activity Restrictions/Additional Instructions: *You have been diagnosed with rib contusions, fall *What to do: At this time increase your fluids recommend Gatorade Gatorade the like product something with sugar and salt. Along with water. This will help flush out some muscle breakdown. Fortunately her scans are negative and you did not break any ribs. Rest no heavy lifting *Continue to take medications as directed [place] 1 tablet every 6 hours if needed for severe pain *Follow up with your primary care provider in 2-3 days or call [phone] *Return to ER if you should have increasing pain shortness of breath dizziness lightheadedness or any new, worsening or concerning symptoms CONTROLLED SUBSTANCE DISCHARGE (Narcotoic/benzodiazepine/Flexeril/Phenergan) 1. You have been prescribed narcotic medications, it does have acetaminophen/Tylenol/paracetamol in it, DO NOT TAKE MORE THAN 4,00mg in 24 hours of Tylenol. TRAMADOL DOES NOT CONTAIN TYLENOL 2. Please understand that we cannot provide further refills of narcotics, benzodiazepines or controlled substances through the ED and her pain management will need to be through your provider. 3. While on these medications you cannot drive or operate heavy machinery. 4. You cannot sign legal documents or perform any duties such as this. 5. As long as you're taking opiate pain medications he should also be taking a stool softener such as Colace, Dulcolax, MiraLAX or prune juice, to help avoid constipation. Prescriptions: New hydrocodone-acetaminophen 5-325 mg tablet 1 tab PO Q6H PRN (Reason: pain) Qty: 10 0RF No Action loratadine [Allergy Relief (loratadine)] 10 mg tablet 10 mg PO DAILY albuterol sulfate 90 mcg/actuation aerosol powdr breath activated 1 inhalation INHALATION Q4-6H PRN fluoxetine 20 mg capsule 20 mg PO DAILY Qty: 90 3RF lisinopril 10 MG tablet 10 mg PO QDAY Qty: 0 omeprazole magnesium [Prilosec OTC] 20 MG tablet,delayed release (DR/EC) 20 mg PO Qty: 0 naproxen [Naprosyn] 500 MG tablet 500 mg PO BID Qty: 30 1RF Referrals: Lucien Cline MD [Primary Care Provider] - Stand Alone Forms: Patient Portal/API
[2022-03-05 16:23] LABS: Prothrombin Time 11.8 SECONDS (10.1-12.7)
[2022-03-05 16:25] LABS: PTT Partial Thromboplastin Tim 28 SECONDS (26-36)
[2022-03-05 16:28] LABS: BUN Creatinine Ratio 22.4 (6-22); Blood Urea Nitrogen 17 mg/dL (9-20); Carbon Dioxide 24 mmol/L (22-32); Chloride 102 mmol/L (98-107); Creatine Kinase 1156 U/L (55-170); HEMOLYSIS < 15 (0-50); Potassium 3.8 mmol/L (3.4-5.1); Sodium 135 mmol/L (137-145)
[2022-03-05 16:29] LABS: Alanine Aminotransferase 47 IU/L (<50); Albumin 4.6 g/dL (3.5-5.0); Albumin Globulin Ratio 1.5 (1.0-2.8); Alkaline Phosphatase 79 U/L (38-126); Aspartate Aminotransferase 59 IU/L (17-59); Bilirubin Total 0.6 mg/dL (0.2-1.3); Calcium 9.3 mg/dL (8.4-10.2); Estimated Glomerular Filt Rate > 60 mL/min (>60); Ethanol (ETOH) < 10 mg/dL; Globulin 3.1 g/dL (1.7-4.1); Glucose 77 mg/dL (70-100); Lipase 55 U/L (23-300); Total Protein 7.7 g/dL (6.3-8.2)
[2022-03-05 16:34] LABS: Add Manual Diff / Slide Review NO; Basophils Absolute Auto 0 /uL (0-100); Basophils Percent Auto 0.2 % (0-2); Eosinophils Absolute Auto 200 /uL (0-450); Eosinophils Percent Auto 1.5 % (2-4); Hemoglobin 13.6 g/dL (13.5-17.5); Lymphocytes Absolute Auto 1900 /uL (1100-4500); Lymphocytes Percent Auto 14.7 % (25-40); Mean Corpuscular HGB Conc 33.3 % (30-36); Mean Corpuscular Hemoglobin 29.6 PG (26-34); Monocytes Absolute Auto 900 /uL (0-900); Monocytes Percent Auto 6.9 % (3-14); Neutrophils Absolute Auto 9800 /uL (1500-7000); Neutrophils Percent Auto 76.7 % (50-75); Platelet Count 261 X10^3/uL (150-400); Red Blood Cell Count 4.61 X10^6/uL (4.5-5.9); Red Cell Distribution Width 13.6 % (11.6-14.8); White Blood Cell Count 12.8 X10^3/uL (4.5-11.0)
[2022-03-05 16:40] LABS: Troponin I < 0.012 ng/mL (0.01-0.034)
[2022-03-05] MEDS: SODIUM CHLORIDE 0.9% 1,000 ML 1000 ML IV ×2 (17:50→18:47)
[2022-03-05] MEDS: KETOROLAC 30 MG/ML VIAL 15 MG IV (17:50)
[2022-03-05 17:51] VITALS: BP 141/78; PULSE 66; RESP 16; O2SAT 99
[2022-03-05] MEDS: HYDROMORPHONE 0.5 MG INJ IV (17:56)
[2022-03-05 18:24] LABS: Appearance Urine UA CLEAR; Bilirubin Urine UA NEGATIVE (NEGATIVE); Color Urine UA YELLOW; Glucose Urine UA NEGATIVE (Negative); Ketones Urine UA NEGATIVE (NEGATIVE); Leukocyte Esterase Urine UA NEGATIVE (NEGATIVE); Nitrite Urine UA NEGATIVE (Negative); Occult Blood Urine UA NEGATIVE (Negative); Protein Urine UA NEGATIVE (Negative); Specific Gravity Urine UA <=1.005 (1.000-1.035); Urobilinogen Urine UA 0.2 E.U./dL (0.2); pH Urine UA 5.5 (4.5-8.0)
[2022-03-05 18:28] LABS: UR Morphine/Opiate cutoff 300 Negative (Negative); Ur Creatinine Normal (Normal); Ur Specific Gravity Normal (Normal); Urine Amphetamines Negative (Negative); Urine Barbiturates Negative (Negative); Urine Benzodiazepines Negative (Negative); Urine Cocaine Negative (Negative); Urine MDMA Negative (Negative); Urine Methamphetamines Negative (Negative); Urine Phencyclidine Negative (Negative); Urine Tetrahydrocannabinol Positive (Negative); Urine pH Normal (Normal)
[2022-03-05 18:29] LABS: Urine Methadone Negative (Negative); Urine Oxycodone Positive (Negative); Urine Tricyclic Antidepressant Negative (Negative)
[2022-03-05 18:32] LABS: Bacteria Urine None Seen; Culture Indicated Urine Cult Not Indicated; RBC Urine None Seen (0-5/HPF); WBC Urine None Seen (0-5/HPF)
[2022-03-05 19:52] VITALS: BP 140/70; PULSE 78; RESP 17; O2SAT 99
[2022-03-05 20:09] LABS: Lactate (Lactic Acid) 0.6 mmol/L (0.7-2.1)
[2022-03-05 20:19] LABS: Creatine Kinase 1112 U/L (55-170)
[2022-03-05 20:43] VITALS: BP 145/94; PULSE 67; O2SAT 98
[2022-03-05] MEDS: HYDROCODONE/ACET 5/325 PREPACK 1 BOTTLE MISC (20:43)
== END 2022-03-05 20:55 | disposition home or self-care (01) ==
PROVIDERS: Emergency Provider Emergency Medicine; PCP Family Medicine
DX: S20.212A Contusion of left front wall of thorax, initial encounter (principal); W31.89XA Contact with other specified machinery, initial encounter; R74.8 Abnormal levels of other serum enzymes; Y99.0 Civilian activity done for income or pay
CPT/HCPCS: 36415; 70450; 71045; 71260; 72125; 74177; 80053; 80305; 80320; 81001; 82550; 82553; 83605; 83690; 84484; 85025; 85610; 85730; 96361; 96374; 96375; 96376; 99284; J1170; J1885; J2405; Q9967

== ENCOUNTER → 2022-03-16 09:39 | Outpatient (CLI) | payer OTHER, SELFPAY ==
--- NOTE | 2022-03-16 09:41 | DI.RAD.S_ITS ---
PROCEDURE: XR RIBS LT MIN 3V W CXR1V INDICATIONS: LEFT RIB PAIN TECHNIQUE: 3 views of the left ribs were acquired, along with a single view chest. COMPARISON: None. FINDINGS: Surgical changes and devices: None. Bones and chest wall: There is a posterior lateral left 8th rib fracture. There is a lateral left 7th rib fracture which may be subacute. No suspicious bony lesions. Overlying soft tissues appear unremarkable. Lungs and pleura: No pleural effusions or pneumothorax. Lungs appear clear. Mediastinum: Mediastinal contours appear normal. Heart size is normal. IMPRESSION: 1. Posterior lateral left 8th rib fracture. 2. Lateral left 7th rib fracture may be subacute. 3. No evidence acute pulmonary process. Dictated by: Scar Braden M.D. on 03/16/2022 at 15:33 Approved by: Scar Braden M.D. on 03/16/2022 at 15:35
== END ==
PROVIDERS: PCP Family Medicine; Referring Provider Family Medicine; Visit Provider Family Medicine
DX: S22.42XA Multiple fractures of ribs, left side, initial encounter for closed fracture (principal); R07.81 Pleurodynia
CPT/HCPCS: 71101

== ENCOUNTER → 2022-10-27 16:45 | Outpatient (CLI) | payer BC, SELFPAY ==
--- NOTE | 2022-10-27 | DI.RAD.S_ITS ---
PROCEDURE: XR KNEE LT 4V INDICATIONS: PATELLAR PAIN TECHNIQUE: 3 views of the knee were acquired. COMPARISON: [facility], CR, XR KNEE RT 3V, 11/19/2020, 12:54. FINDINGS: Bones: No fractures or dislocations. No suspicious bony lesions. Soft tissues: No joint effusion. No suspicious soft tissue calcifications. Prepatellar soft tissue swelling IMPRESSION: Prepatellar soft tissue swelling consistent with bursitis. Approved by: Jimenez Donnelly M.D. on 10/28/2022 at 13:48
== END ==
PROVIDERS: PCP Family Medicine; Referring Provider Family Medicine; Visit Provider Family Medicine
DX: M70.42 Prepatellar bursitis, left knee (principal)
CPT/HCPCS: 73564

== ENCOUNTER 2024-03-12 21:31 | Emergency (ER) | payer OTHER, SELFPAY ==
[2024-03-12 21:37] VITALS: BP 166/74; PULSE 104; RESP 18; TEMP 36.6; O2SAT 98; BMI 30.8
--- NOTE | 2024-03-12 22:17 | DI.RAD.S_ITS ---
PROCEDURE: XR HAND RT MIN 3V INDICATIONS: red and swelling after injury TECHNIQUE: 3 views of the hand(s) acquired. COMPARISON: None. FINDINGS: Bones: No fractures or dislocations. Carpal bones are normally aligned. No suspicious bony lesions. Soft tissues: No suspicious soft tissue calcifications. No radiodense foreign body visualized in the soft tissues. IMPRESSION: No acute bony abnormality. No radiodense foreign body visualized in the soft tissues. Approved by: Suha Borjas M.D.,Ph.D. on 03/12/2024 at 22:47
--- NOTE | 2024-03-12 23:08 | ED.GENADULT ---
HPI - General Adult General Chief complaint: Extremity Injury, Upper Stated complaint: R Hand Injury at work, Nail Puncture Time Seen by Provider: 03/12/24 23:03 Source: patient Mode of arrival: Ambulatory History of Present Illness HPI narrative: Patient was a 43-year-old male here for evaluation of an injury to his right hand while at work. He states that he had a puncture wound to the back of his right hand by a nail. He does need an update of his tetanus. The event occurred earlier today. Related Data Home Medications Medication Instructions Recorded Confirmed lisinopril 10 mg tablet 10 mg PO QDAY ##0 11/03/16 06/24/21 omeprazole magnesium 20 mg 20 mg PO ##0 11/03/16 06/24/21 tablet,delayed release (Prilosec OTC) albuterol sulfate 90 mcg/actuation 1 inhalation inhalation Q4-6H PRN 12/20/19 06/24/21 breath activated powder inhaler loratadine 10 mg tablet (Allergy 10 mg PO DAILY 12/20/19 06/24/21 Relief (loratadine)) Previous Rx's Medication Instructions Recorded naproxen 500 mg tablet (Naprosyn) 500 mg PO BID #30 tabs 11/03/16 hydrocodone 5 mg-acetaminophen 325 1 tab PO Q6H PRN pain #10 tabs 03/05/22 mg tablet fluoxetine 20 mg capsule 20 mg PO DAILY #90 caps 03/23/22 cephalexin 500 mg capsule 500 mg PO QID 5 days #20 caps 03/12/24 Allergies Allergy/AdvReac Type Severity Reaction Status Date / Time cat dander Allergy Mild Verified 03/05/22 15:41 dog dander Allergy Verified 03/05/22 15:41 seasonal Allergy Mild runny Uncoded 06/24/21 16:07 nose, itchy eyes Review of Systems Review of Systems Narrative: See HPI Patient History Social History Smoking Status: Former smoker Smoking Status: Former smoker alcohol intake frequency: holidays/special occasions only Alcohol type: other Exam Initial Vital Signs Initial Vital Signs: Vital Signs Temperature 98 F 03/12/24 21:37 Pulse Rate 104 H 03/12/24 21:37 Respiratory Rate 18 03/12/24 21:37 Blood Pressure 166/74 H 03/12/24 21:37 Pulse Oximetry 98 01/13/25 21:37 Oxygen Delivery Method Room Air 03/12/24 21:37 Skin Other: Small puncture wound on the dorsum of the left hand in between his index finger and thumb. No active bleeding. No surrounding erythema. No drainage. Extrem Other: Puncture wound to the dorsum of the right hand Course Orders Ordered: ED Orders 03/12/24 22:17 XR hand RT min 3V Stat Discontinued Medications Cephalexin HCl (Cephalexin 250 Mg Capsule) 500 mg PO NOW ONE Stop: 03/12/24 23:07 Last Admin: 03/12/24 23:15 Dose: 500 mg Documented By: MAIRA Diphtheria/Tetanus/Acell Pertussis (Tet,Diph,Pertuss(Acell),Vac/Pf 0.5 Ml Syringe) 0.5 ml IM .ONCE ONE Stop: 03/12/24 22:17 Last Admin: 03/12/24 23:14 Dose: 0.5 ml Documented By: MAIRA Vital Signs Vital signs: Vital Signs - 8 hr 03/12/24 21:37 Temperature 98 F Pulse Rate 104 H Respiratory Rate 18 Blood Pressure 166/74 H Pulse Oximetry 98 Oxygen Delivery Method Room Air Medical Decision Making Imaging Data Extremity x-ray #1: Radiologist's Impression: PROCEDURE: XR HAND RT MIN 3V INDICATIONS: red and swelling after injury TECHNIQUE: 3 views of the hand(s) acquired. COMPARISON: None. FINDINGS: Bones: No fractures or dislocations. Carpal bones are normally aligned. No suspicious bony lesions. Soft tissues: No suspicious soft tissue calcifications. No radiodense foreign body visualized in the soft tissues. IMPRESSION: No acute bony abnormality. No radiodense foreign body visualized in the soft tissues. MDM Narrative Medical decision making narrative: No fractures noted on the x-rays. We did update his tetanus. Given that this was a puncture wound into the hand will start the patient on antibiotics. First dose given here in the ER and a prescription was sent to the pharmacy of his choice. L and I paperwork completed. He was given return precautions. He expressed understanding and agreement. Discharge Plan Departure Patient Disposition: Home Clinical Impression: Puncture wound of skin from metal nail Instructions: DI for Puncture Wound Activity Restrictions/Additional Instructions: We did update your tetanus shot today. Take the antibiotics as directed. You can wash your hands with soap and water. Return to the emergency department for new or worsening symptoms. Prescriptions: New cephalexin 500 mg capsule 500 mg PO QID 5 Days Qty: 20 0RF No Action loratadine [Allergy Relief (loratadine)] 10 mg tablet 10 mg PO DAILY albuterol sulfate 90 mcg/actuation aerosol powdr breath activated 1 inhalation INHALATION Q4-6H PRN fluoxetine 20 mg capsule 20 mg PO DAILY Qty: 90 3RF lisinopril 10 MG tablet 10 mg PO QDAY Qty: 0 omeprazole magnesium [Prilosec OTC] 20 MG tablet,delayed release (DR/EC) 20 mg PO Qty: 0 naproxen [Naprosyn] 500 MG tablet 500 mg PO BID Qty: 30 1RF hydrocodone-acetaminophen 5-325 mg tablet 1 tab PO Q6H PRN (Reason: pain) Qty: 10 0RF Referrals: Lucien Cline MD [Primary Care Provider] - Stand Alone Forms: Patient Portal/API/Survey
[2024-03-12] MEDS: TET,DIPH,PERTUSS(ACELL),VAC/PF 0.5 ML SYRINGE IM (23:14)
[2024-03-12] MEDS: cephALEXin 250 MG CAPSULE 500 MG PO (23:15)
== END 2024-03-12 23:26 | disposition home or self-care (01) ==
PROVIDERS: Emergency Provider Emergency Medicine; PCP Family Medicine
DX: S61.431A Puncture wound without foreign body of right hand, initial encounter (principal); W45.0XXA Nail entering through skin, initial encounter; Z23 Encounter for immunization
CPT/HCPCS: 73130; 90471; 99283; 90715